=== PATIENT | female | born 1955 | race Caucasian/White ===

== ENCOUNTER 2020-05-03 07:33 | Emergency (ER) | payer OTHER, SELFPAY ==
[2020-05-03 07:46] VITALS: BP 155/68; PULSE 87; RESP 16; TEMP 36.9; O2SAT 100; BMI 40.3
--- NOTE | 2020-05-03 08:03 | CT_ITS ---
EXAMINATION: CT ABDOMEN AND PELVIS WITHOUT CONTRAST CLINICAL INFORMATION: 64-year-old female patient with question of small bowel obstruction. COMPARISON: CT of the abdomen and pelvis on 06/05/2018. (Fatty liver. Darion hepatis lymph node. Left renal calculus. Cholelithiasis. Diverticulosis. Status post hysterectomy and bilateral salpingo-oophorectomy). TECHNIQUE: Multidetector volumetric imaging was performed from the superior aspect of the liver through the pubic symphysis. Sagittal and coronal reformatted images were obtained on the technologist's workstation. This CT examination was performed using dose optimization techniques as appropriate, variously including the following: *Automated exposure control *Adjustment of mA and/or kV according to patient size (this includes techniques or standardized protocols for targeted exams where dose is matched to indication/reason for exam; i.e. extremities or head) *Use of iterative reconstruction technique DLP: 783 mGy-cm FINDINGS: FOOT PIECE ASSEMBLER: The patient has had a cholecystectomy in the interim. There is no evidence of intestinal obstruction. Large left renal calculus. LUNG BASES: The visualized lung bases are unremarkable. LIVER, GALLBLADDER, AND BILIARY TREE: The liver is normal in size, and shape. There is diffuse fatty infiltration with focal areas of sparing. The gallbladder has been removed. The biliary ducts are not dilated. No focal masses are seen. PANCREAS: Unremarkable. SPLEEN: Unremarkable. ADRENAL GLANDS: The right adrenal myolipoma measures 2.4 cm in diameter. The left adrenal gland is normal. KIDNEYS AND URETERS: The large central renal calculus is in similar position within the left renal collecting system. No hydronephrosis. Normal cortical thickness. No masses. The kidneys are normal in size, shape, and attenuation. No hydronephrosis, hydroureter, or calculi seen. No perinephric stranding. BLADDER: Unremarkable. GASTROINTESTINAL TRACT: The stomach and small bowel are normal in caliber. Multiple diverticula arise in the sigmoid colon but there is no indication of diverticulitis or other pericolonic inflammatory disease. The cecum is mobile. The appendix is normal. There is no free fluid. No free air. ABDOMINAL WALL: No significant hernia is appreciated. LYMPH NODES: A solitary lymph node in the darion hepatis measures close to 1 cm in short axis. Small lymph nodes are present in the celiac axis. The periaortic region is void of significant lymphadenopathy. VASCULAR: Unremarkable. PELVIC VISCERA: Uterus has been removed. OSSEOUS STRUCTURES: Unremarkable. CT/CT abdomen pelvis wo con IMPRESSION: 1. No evidence of intestinal obstruction. Sigmoid diverticulosis. 2. Right adrenal myelolipoma. 3. Large nonobstructing left renal calculus. 4. Fatty liver.
--- NOTE | 2020-05-03 08:09 | ED.ABDPAIN ---
HPI - Abdominal Pain General Chief Complaint: Abdominal Pain Stated Complaint: stomach pain Time Seen by Provider: 05/03/20 08:03 Source: patient Mode of arrival: ambulatory Limitations: no limitations History of Present Illness HPI narrative: 64 years old female presented with 3 days of abdominal pain, described as generalized abdominal pain, pain is constant, described the pain as dull aching pain, moderate 5/10, no radiation, associated with nonbloody watery diarrhea/nausea/no vomiting, nothing relieved the pain, nothing worsening the pain. Patient stated that she gets this pain every now and then after she had her gallbladder surgery 2 years ago but this time pain is more constant and more intense. No recent travel, no recent use of antibiotics, no sick contact, no exposure to bad food. Related Data Allergies Allergy/AdvReac Type Severity Reaction Status Date / Time No Known Allergies Allergy Unverified 03/06/20 14:43 [No Known Allergies*] N.K.D.A. Allergy Unknown Uncoded 07/28/18 00:00 Review of Systems Review of Systems All other systems are reviewed and are negative Constitutional: Reports as per HPI and Reports no additional constitutional complaints Eyes: Reports as per HPI and Reports no additional eye complaints Reports system reviewed and no additional complaints, except as documented Cardiovascular: Reports as per HPI and Reports no additional cardiovascular complaints Respiratory: Reports as per HPI and Reports no additional respiratory complaints Gastrointestinal: Reports as per HPI and Reports no additional gastrointestinal complaints Genitourinary: Reports no additional female genitourinary complaints Musculoskeletal: Reports no additional musculoskeletal complaints Skin/Breast: Reports system reviewed and no additional complaints, except as docu Psychiatric: Reports no additional psychiatric complaints Endocrine: Reports no additional endocrine complaints Hematologic/Lymphatic: Reports no additional hematologic/lymphatic complaints Allergic/Immunologic: Reports no additional allergic/immunologic complaints Reports system reviewed and no additional complaints, except as documented and Reports Abnormal speech present Physical Exam Vital Signs: Vital Signs: Last Vital Signs Temp 97.8 F 05/03/20 09:25 Pulse 76 05/03/20 09:25 Resp 16 05/03/20 09:25 BP 143/56 H 05/03/20 09:25 Pulse Ox 100 05/03/20 07:46 Body Mass Index 40.3 Vital signs have been reviewed as normal and appeared to be correct. Blood pressure on the high range l. Heart rate normal. Respiration rate normal. Temperature normal. Oxygen saturation normal. Appearance: Alert. Oriented X3. No acute distress. Head: Normal external exam. Normocephalic. Atraumatic. No Mckeon signs noted. No raccoon eyes noted Eyes: PERRLA. EOMI. Conjunctiva and sclera normal. Eyelids normal. ENT: EAC normal. TM's Normal. Pharynx normal. Uvula midline. Moist mucous membranes. No trismus noted. No drooling noted. No muffled voice noted. Neck: Normal inspection. Neck supple. FROM. No adenopathy. Thyroid Normal. No meningeal signs. No neck mass noted. CVS: Normal heart rate and rhythm. Heart sound normal. No murmurs noted. Pulses normal throughout. Respiratory: No respiratory distress. Painless inspiration. Breath sounds normal. No wheezes/rales/rhonchi noted. Chest nontender. No accessory muscle usage noted or decreased air movement noted. Abdomen: Soft, mild tenderness to the left abdominal side., no rebound, no guarding.. Bowel sounds normal in all 4 quadrants. No distention noted. No organomegaly noted. No visible injury noted. Back: No CVA tenderness. Full range of motion noted. Skin: Skin warm and dry. Normal skin color. Normal skin turgor. No rashes/lesions/lacerations noted. Extremities: No lower extremity edema. Extremities exhibit normal range of motion. Extremities nontender. Neuro: Oriented X 3. No motor deficit. No sensory deficit. Reflexes normal. MDM - Abdominal Pain MDM Narrative Medical decision making narrative: Assessment and plan. 64-year-old female presented with abdominal pain for 3 days, patient had unremarkable CT, slight leukocytosis. Reassess thing the patient is feeling better, patient complained of slight headache and patient think because she has not been drinking her coffee and not getting her daily caffeine dosage. Patient received coffee in the emergency department now the headache feels better, able to tolerate p.o. intake in the emergency department, patient Nisha wait to give a UA and would like to go home. Patient declined symptoms of UTI. Lab Data Attestation: I reviewed the patient's lab results. Result diagrams: 05/03/20 08:40 05/03/20 08:40 Labs: Lab Results 05/03/20 05/03/20 Range/Units 08:40 08:40 WBC 11.0 H (4.8-10.8) X10*3/uL RBC 4.91 (4.20-5.50) X10*6/uL Hgb 13.7 (12.0-16.0) g/dl Hct 42.1 (37-47) % MCV 85.7 (80-98) fL MCH 27.9 (27.0-33.0) pg MCHC 32.5 (31.0-35.0) g/dl RDW 13.8 (11.0-16.0) % Plt Count 221 (160-400) X10*3/uL MPV 9.8 (9.4-12.3) fL Immature Gran % (Auto) 0.3 (0.0-0.4) % Neut % (Auto) 72.0 (45-73) % Lymph % (Auto) 19.7 L (20-40) % Doddridge % (Auto) 6.1 (2-11) % Eos % (Auto) 1.6 (0-4) % Baso % (Auto) 0.3 (0-2) % Lymph # (Auto) 2.2 (1.2-4.9) X10*3/uL Doddridge # (Auto) 0.7 (0.1-1.2) X10*3/uL Eos # (Auto) 0.2 (0.0-0.4) X10*3/uL Baso # (Auto) 0.0 (0.0-0.2) X10*3/uL Abs Immat Gran (auto) 0.03 (0.00-0.03) X10*3/uL Absolute Neuts (auto) 7.9 (2.0-8.3) X10*3/uL Absolute Nucleated RBC 0.000 (0.0-0.012) X10*3/uL Nucleated RBC % (auto) 0.0 (0.0-0.2) /100WBC Sodium 139 (135-145) mmol/L Potassium 3.7 (3.3-5.1) mmol/l Chloride 104 (96-108) mmol/L Carbon Dioxide 27 (22-29) mmol/L Anion Gap 12 (12-20) BUN 11 (9-16) mg/dL Creatinine 0.62 (0.5-1.4) mg/dL Estim Creat Clear Calc 117.0 Estimated GFR > 60 Random Glucose 135 H (60-115) mg/dL Calcium 8.3 L (8.4-10.2) mg/dL Total Bilirubin 0.6 (0.0-1.0) mg/dL Direct Bilirubin 0.2 (0.0-0.5) mg/dL AST 22 (5-31) U/L ALT 15 (0-31) U/L Alkaline Phosphatase 85 (39-117) U/L Total Protein 6.5 (6.5-8.0) g/dL Albumin 3.6 (3.5-5.0) g/dL Lipase 10 (8-78) U/L Imaging Data CT scan - abdomen: Radiologist's impression: 1. No evidence of intestinal obstruction. Sigmoid diverticulosis. 2. Right adrenal myelolipoma. 3. Large nonobstructing left renal calculus. 4. Fatty liver. Discharge Plan Discharge Clinical Impression: Abdominal pain Qualifiers: Abdominal location: generalized Qualified Code(s): R10.84 - Generalized abdominal pain Patient Disposition: Home, Self-Care Instructions: Abdominal Pain (ED) Referrals: Estefania Oquendo MD [Primary Care Provider] - 2 days [facility] Past Medical History Medical History Diabetes Glaucoma Social History Social History Alcohol intake: never Smoking Status: Never smoker Smoked in Last 30 Days: No Use of substances other than those prescribed or required for medical reasons: No Advance Directives: Yes Advance Directives Information Provided: Yes Advance Directives on File: No
[2020-05-03] MEDS: 0.9 % Sodium Chloride 500 ML 1000 ML IV (08:46)
[2020-05-03] MEDS: Loperamide HCl 2 MG CAPSULE PO (08:46)
[2020-05-03 08:47] LABS: Basophils Percent Auto 0.3 % (0-2); Eosinophils Absolute Auto 0.2 X10*3/uL (0.0-0.4); Eosinophils Percent Auto 1.6 % (0-4); Hematocrit 42.1 % (37-47); Hemoglobin 13.7 g/dl (12.0-16.0); Imm Gran Abs Auto 0.03 X10*3/uL (0.00-0.03); Imm Gran Pct Auto 0.3 % (0.0-0.4); Lymphocytes Absolute Auto 2.2 X10*3/uL (1.2-4.9); Lymphocytes Percent Auto 19.7 % (20-40); Mean Corpuscular HGB Conc 32.5 g/dl (31.0-35.0); Mean Corpuscular Hemoglobin 27.9 pg (27.0-33.0); Mean Corpuscular Volume 85.7 fL (80-98); Mean Platelet Volume 9.8 fL (9.4-12.3); Monocytes Absolute Auto 0.7 X10*3/uL (0.1-1.2); Monocytes Percent Auto 6.1 % (2-11); Neutrophils Absolute Auto 7.9 X10*3/uL (2.0-8.3); Platelet Count 221 X10*3/uL (160-400); Red Blood Count 4.91 X10*6/uL (4.20-5.50); Red Cell Distribution Width 13.8 % (11.0-16.0)
[2020-05-03] MEDS: ondansetron HCL 4 MG/2 ML VIAL IVPUSH (08:47)
[2020-05-03 08:48] LABS: MANUAL DIFF FLAG NO
[2020-05-03 09:17] LABS: Alanine Aminotransferase 15 U/L (0-31); Albumin Level 3.6 g/dL (3.5-5.0); Alkaline Phosphatase 85 U/L (39-117); Anion Gap 12 (12-20); Aspartate Amino Transferase 22 U/L (5-31); Bilirubin Direct 0.2 mg/dL (0.0-0.5); Bilirubin Total 0.6 mg/dL (0.0-1.0); Blood Urea Nitrogen 11 mg/dL (9-16); Calcium 8.3 mg/dL (8.4-10.2); Carbon Dioxide 27 mmol/L (22-29); Chloride 104 mmol/L (96-108); Estimated Glomerular Filt Rate > 60; Glucose Random 135 mg/dL (60-115); Lipase 10 U/L (8-78); Potassium 3.7 mmol/l (3.3-5.1); Sodium 139 mmol/L (135-145); Total Protein 6.5 g/dL (6.5-8.0)
[2020-05-03 09:25] VITALS: BP 143/56; PULSE 76; RESP 16; TEMP 36.6
[2020-05-03] MEDS: Acetaminophen 325 MG TABLET 650 MG PO (10:28)
== END 2020-05-03 11:41 | disposition home or self-care (01) ==
PROVIDERS: Emergency Provider Emergency Medicine; PCP Internal Medicine
DX: R10.84 Generalized abdominal pain (principal)
CPT/HCPCS: 36415; 74176; 80048; 80076; 83690; 85025; 96361; 96374; 99284; J2405

== ENCOUNTER 2020-08-19 10:16 | Outpatient (REF) | payer MEDICARE, SELFPAY ==
--- NOTE | ~2020-08-19 | US_ITS ---
EXAMINATION: US THYROID CLINICAL INFORMATION: Multinodular goiter. COMPARISON: Ultrasound soft tissue head/neck 07/26/2016. TECHNIQUE: Linear transducer martínez-scale and color Doppler examination with attention to the region of the thyroid. FINDINGS: SIZE: Measurements of the thyroid lobes and nodules are given in sagittal, anteroposterior and transverse dimensions respectively. Right Thyroid Lobe: 6.0 x 2.4 x 1.7 cm, volume 12.8 mL. Parenchyma: The gland echotexture is heterogeneous. Thyroid vascularity is normal. Left Thyroid Lobe: 4.3 x 2.3 x 2.6 cm, volume 12.9 mL. Parenchyma: The gland echotexture is heterogeneous. Thyroid vascularity is normal. Isthmus: 0.4 cm in maximum AP dimension. Estimated total number of nodules greater than or equal to 1 cm: 4. There are multiple less than 1 cm nodules seen bilaterally. Upstream Biomanufacturing Technician nodules are described as follows: 1. Location: Right lower pole. Size: 2.1 x 1.2 x 1.3 cm, volume 1.71 mL. Nodule characteristics: Composition: Mixed cystic and solid (1). Echogenicity: Hypoechoic (2). Shape: Not taller than wide (0). Margins: Smooth (0). Echogenic Foci: Punctate echogenic foci (3). ACR TI-RADS total points: 6 ACR TI-RADS category: 4 2. Location: Right lower pole. Size: 1.4 x 0.8 x 0.7 cm, volume 0.42 mL. Nodule characteristics: Composition: Mixed cystic and solid (1). Echogenicity: Hypoechoic (2). Shape: Not taller than wide (0). Margins: Smooth (0). Echogenic Foci: Punctate echogenic foci (3). ACR TI-RADS total points: 6 ACR TI-RADS category: 4 3. Location: Left. Size: 4.3 x 2.3 x 2.6 cm, volume 12.9 mL. Nodule characteristics: Composition: Spongiform (0). ACR TI-RADS total points: 0 ACR TI-RADS category: 1 4. Location: Left isthmus. Size: 1.7 x 0.9 x 1.0 cm, volume 0.76 mL. Nodule characteristics: Composition: Solid/almost completely solid (2). Echogenicity: Hypoechoic (2). Shape: Not taller than wide (0). Margins: Smooth (0). Echogenic Foci: None (0). ACR TI-RADS total points: 4 ACR TI-RADS category: 4 NODES: No lymphadenopathy is seen in the tissue surrounding the thyroid gland. US/US thyroid IMPRESSION: Enlarged heterogeneous thyroid gland with bilateral thyroid nodules. Fine needle aspiration of the largest nodule in each lobe and ultrasound follow-up should be considered as described below. ACR TI-RADS RECOMMENDATION REFERENCE: Ultrasound-guided fine-needle aspiration, followup ultrasound, no further follow up. * TR1 (0 point) and TR 2 (2 points): No FNA or follow up * TR3 (3 points): FNA if more than or equal to 2.5 cm in maximum dimension, followup ultrasound in 1, 3 and 5 years if 1.5 to 2.4 cm in maximum dimension. * TR4 (4-6 points): FNA if more than or equal to 1.5 cm in maximum dimension, followup ultrasound in 1, 2, 3 and 5 years if 1 to 1.4 cm in maximum dimension. * TR5 (more than or equal to 7 points): FNA if more than or equal to 1 cm in maximum dimension, followup ultrasound every year for 5 years if 0.5 to 0.9 cm in maximum dimension. * TR3, TR4 or TR5 nodules that are below the size threshold for follow up receive no follow up.
== END 2020-08-19 10:17 | disposition home or self-care (01) ==
LOC: HO.HMGCX 10:16
PROVIDERS: PCP Family Medicine; Visit Provider Family Medicine
DX: E04.2 Nontoxic multinodular goiter (principal)
CPT/HCPCS: 76536

== ENCOUNTER 2020-11-19 13:43 | Outpatient (REF) | payer MEDICARE, SELFPAY ==
[2020-11-19 16:30] LABS: Color Urine YELLOW; Glucose Urine UA >=1000 MG/DL (NEG); Leukocyte Esterase Urine NEG (NEG); Nitrite Urine NEG (NEG); Urine Blood NEG (NEG); Urine Ketones NEG (NEG); Urine Protein NEG (NEG-TRACE)
[2020-11-19 16:31] LABS: Appearance Urine CLEAR
[2020-11-19 16:37] LABS: Bacteria Urine TRACE /LPF; RBC Urine 0-2 /HPF (0); Squamous Epithelial Cell Urine 1+ /LPF; WBC Urine 0 /HPF (0-4)
== END 2020-11-19 13:44 | disposition home or self-care (01) ==
LOC: HO.LNP 13:43
PROVIDERS: Visit Provider Family Medicine
DX: R30.0 Dysuria (principal)
CPT/HCPCS: 81001; 87086

== ENCOUNTER 2022-03-24 09:59 | Outpatient (REF) | payer MEDICARE, SELFPAY ==
[2022-03-24 11:35] LABS: Estimated Average Glucose 278 mg/dL; Hemoglobin A1c % 11.3 %
[2022-03-24 11:48] LABS: Alanine Aminotransferase 16 U/L (0-31); Anion Gap 14 (12-20); Aspartate Amino Transferase 17 U/L (5-31); Blood Urea Nitrogen 16 mg/dL (9-16); Calcium 9.4 mg/dL (8.4-10.2); Carbon Dioxide 27 mmol/L (22-29); Chloride 101 mmol/L (96-108); Estimated Glomerular Filt Rate > 60; Glucose Random 345 mg/dL (60-115); Potassium 4.2 mmol/L (3.3-5.1); Sodium 138 mmol/L (135-145)
[2022-03-24 14:56] LABS: Creatinine Urine 43.61 mg/dL; Microalbum/Creatinine Ratio Ur 66.4 ug/mg cr
[2022-03-25 13:51] LABS: LDL Cholesterol Direct 73 mg/dL (<100)
== END 2022-03-24 10:00 | disposition home or self-care (01) ==
LOC: HO.HMGCLDS 09:59
PROVIDERS: Visit Provider Physician Assistant
DX: E11.40 Type 2 diabetes mellitus with diabetic neuropathy, unspecified (principal)
CPT/HCPCS: 36415; 80048; 82043; 83036; 83721; 84450; 84460

== ENCOUNTER 2024-04-25 11:46 | Outpatient (REF) | payer MEDICARE, SELFPAY ==
[2024-04-25 13:49] LABS: Estimated Average Glucose 174 mg/dL; Hemoglobin A1C 196.3123 umol/L; Hemoglobin A1c % 7.7 % (<6.0); Total Hemoglobin (HGBA1C) 3239.2926 umol/L
[2024-04-25 14:09] LABS: Alanine Aminotransferase 20 U/L (0-31); Anion Gap 10 (12-20); Aspartate Amino Transferase 24 U/L (5-31); Blood Urea Nitrogen 21 mg/dL (9-16); Calcium 9.6 mg/dL (8.4-10.2); Carbon Dioxide 29 mmol/L (22-29); Chloride 102 mmol/L (96-108); Estimated Glomerular Filt Rate > 60; Glucose Random 127 mg/dL (60-115); Sodium 137 mmol/L (135-145)
== END 2024-04-25 11:47 | disposition home or self-care (01) ==
LOC: HO.HMGCLDS 11:46
PROVIDERS: PCP Family Medicine; Visit Provider Internal Medicine Endocrinology, Diabetes & Metabolism
DX: E11.42 Type 2 diabetes mellitus with diabetic polyneuropathy (principal)
CPT/HCPCS: 36415; 80048; 83036; 84450; 84460

== ENCOUNTER 2024-11-23 12:31 | Outpatient (REF) | payer MEDICARE, SELFPAY ==
--- OUTSIDE RECORDS SUMMARY | 2024-11-23 12:36 | XMS_ITS ---
Author Organization [facility] Address [address] [address] Care Team Providers Care [address] Justice Name Role Phone Frieda Bal Primary Care Provider LACHELLE Patiño Unavailable [phone] REASON FOR VISIT 3 month f/u Encounters Encounter Location Date Provider Diagnosis [facility] [address] [address] 10/24/2024 LACHELLE DÍAZ Plan Of Treatment Next Appt Details Provider Name:LACHELLE DÍAZ, 11/30/2024 09:45:00 AM, [address] [address], [place], [address], Progress Notes * María Elena DECKEReDOB:1955 (69 yo F)Acc No.[id number]:10/24/2024 Progress Note Patient:Monserrat SOLOOMN Provider:?Lachelle Díaz DPM :1955???Age:69 Y???Sex:Female D ate:10/24/2024 Phone: Address:[address] [place], [place] [id number] Pcp:Frieda Bal Subjective: * Chief Complaints: * ???1. 3 month f/u. * Medical History:? Objective: * Vitals:? Assessment: Plan: * Treatment: * Billing Information: * Visit Code:? * Procedure Codes:? * Electronic signature of JLUIS DÍAZ D.P.M on 11/23/2024 at 12:36 PM EDT Sign off status: Pending * Provider:Lisa Díaz DPM Date:? 10/24/2024 Generated for Sunday abebe/Melina/eTransmitting on:?11/23/2024 12:36 PM EDT
[2024-11-23 16:48] LABS: Estimated Average Glucose 229 mg/dL; Hemoglobin A1c % 9.6 % (<6.0)
[2024-11-23 16:56] LABS: Alanine Aminotransferase 16 U/L (0-31); Anion Gap 12 (12-20); Aspartate Amino Transferase 21 U/L (5-31); Blood Urea Nitrogen 21 mg/dL (9-16); Calcium 9.5 mg/dL (8.4-10.2); Carbon Dioxide 28 mmol/L (22-29); Chloride 100 mmol/L (96-108); Cholesterol 135 mg/dL (<200); Estimated Glomerular Filt Rate > 60; Glucose Random 340 mg/dL (60-115); HDL Cholesterol 36 mg/dL (>40); LDL Cholesterol Calculated 68 mg/dL (<100); Potassium 4.2 mmol/L (3.3-5.1); Sodium 136 mmol/L (135-145); Triglycerides 159 mg/dL (<150)
[2024-11-23 17:10] LABS: TSH reflex Free T4 0.36 uIU/mL (0.32-4.0)
[2024-11-23 17:17] LABS: Vitamin B12 769 pg/mL (200-900)
== END 2024-11-23 12:32 | disposition home or self-care (01) ==
LOC: HO.HMGCLDS 12:31
PROVIDERS: PCP Family Medicine; Visit Provider Internal Medicine Endocrinology, Diabetes & Metabolism
DX: E11.42 Type 2 diabetes mellitus with diabetic polyneuropathy (principal); E04.2 Nontoxic multinodular goiter
CPT/HCPCS: 36415; 80048; 80061; 82607; 83036; 84443; 84450; 84460